=== PATIENT | female | born 1940 | race Two or more races ===

== ENCOUNTER 2021-11-23 09:23 | Inpatient (IN) | payer OTHER, MEDICARE ==
[~2021-11-23] VITALS: Ht 165.1 cm; Wt 59.0 kg
[2021-11-23] MEDS ORDERED: LORazepam 2MG/ML-1ML VIAL IV ONE ×2 (10:00→16:45)
[2021-11-23] MEDS ORDERED: HALOPERIDOL LACTATE 5 MG/ML INJ VIAL IM ONE (10:00)
[2021-11-23] MEDS ORDERED: SODIUM CHLORIDE 0.9% 1,000 ML IV ONE (11:30)
[2021-11-23 12:03] LABS: Basophils # (auto) 0.1 10 ^3/uL (0-0.2); Basophils % (auto) 0.5 % (0.0-2.0); Eosinophils # (auto) 0.1 10 ^3/uL (0-0.8); Eosinophils % (auto) 1.2 % (0.0-7.0); Hematocrit 40.7 % (36.0-46.0); Lymphocytes % (auto) 8.9 % (10.0-50.0); Mean Corpuscular Hemoglobin 29.1 pg (28.0-32.0); Mean Corpuscular Volume 90.7 fL (80.0-100.0); Monocytes # (auto) 1.1 10 ^3/uL (0-1.3); Monocytes % (auto) 9.4 % (0.0-12.0); Nucleated Red Blood Cells % 0.1 %; Red Blood Cells 4.49 10^6/uL (4.0-5.20); Red Cell Distribution Width 13.8 % (11.8-14.3); White Blood Cell 11.3 10^3/uL (4.4-10.8)
[2021-11-23 12:24] LABS: Albumin 3.9 g/dL (3.4-5.0); Calcium 8.5 mg/dL (8.5-10.1); Potassium 3.5 mmol/L (3.5-5.1)
[2021-11-23] MEDS ORDERED: diphenhdrAMINE HCL 50 MG/1 ML VL IV ONE (12:45)
[2021-11-23 12:46] LABS: BUN/Creatinine Ratio 25.5; Bilirubin, Total 0.6 mg/dL (0.2-1.0); Total Protein 7.4 g/dL (6.4-8.2)
[2021-11-23 16:40] LABS: Urine Bacteria FEW /hpf (None Seen); Urine Blood 1+ /uL (Negative); Urine Specific Gravity 1.013 (1.001-1.035); Urine WBC 7 /hpf (0 - 5)
[2021-11-23] MEDS ORDERED: LORazepam 2MG/ML-1ML VIAL ONE (16:43)
[2021-11-23] MEDS ORDERED: HYDROcodone-ACET 5/325MG TAB PO PRN (21:15)
[2021-11-23] MEDS ORDERED: hydrALAZINE HCL 20 MG/ML VL IV PRN (21:15)
[2021-11-23] MEDS ORDERED: LORazepam 2MG/ML-1ML VIAL IV PRN (21:15)
[2021-11-23] MEDS ORDERED: ACETAMINOPHEN 325 MG TAB PO PRN (21:15)
[2021-11-23] MEDS ORDERED: DOCUSATE SOD 100 MG CAP PO PRN (21:15)
[2021-11-23] MEDS ORDERED: POTASSIUM CHL 20 Meq TABLET PO ONE (21:15)
[2021-11-23] MEDS ORDERED: ONDANSETRON HCL 4 MG/2 ML VIAL IV PRN (21:15)
[2021-11-23] MEDS: SODIUM CHLOR 0.9% PF (SALINE LOCK) 10ML VIAL/SYR IV SCH (22:00)
[2021-11-23] MEDS ORDERED: ASCORBIC ACID 500 MG TAB PO SCH (22:00)
[2021-11-24] MEDS ORDERED: MORPHINE SULFATE INJECTION 2 MG/ML SYRG IV PRN (01:00)
[2021-11-24] MEDS ORDERED: NITROGLYCERIN 0.4 MG SL TAB SL PRN (01:00)
[2021-11-24 05:53] LABS: Basophils # (auto) 0 10 ^3/uL (0-0.2); Basophils % (auto) 0.3 % (0.0-2.0); Eosinophils # (auto) 0.1 10 ^3/uL (0-0.8); Eosinophils % (auto) 0.5 % (0.0-7.0); Hemoglobin 14.1 g/dL (12.2-16.2); Lymphocytes # (auto) 0.8 10 ^3/uL (0.4-5.4); Mean Corpuscular Hemoglobin 29.5 pg (28.0-32.0); Mean Corpuscular Hgb Conc. 32.9 g/dL (32.0-36.0); Mean Corpuscular Volume 89.9 fL (80.0-100.0); Monocytes # (auto) 1.1 10 ^3/uL (0-1.3); Monocytes % (auto) 8.9 % (0.0-12.0); Neutrophils # (auto) 10.1 10 ^3/uL (1.6-8.6); Neutrophils % (auto) 83.3 % (37.0-80.0); Nucleated Red Blood Cells % 0.1 %; Red Blood Cells 4.79 10^6/uL (4.0-5.20); Red Cell Distribution Width 13.9 % (11.8-14.3); White Blood Cell 12.1 10^3/uL (4.4-10.8)
[2021-11-24] MEDS: SODIUM CHLOR 0.9% PF (SALINE LOCK) 10ML VIAL/SYR IV SCH (06:07)
[2021-11-24 06:18] LABS: Albumin 3.9 g/dL (3.4-5.0); Calcium 8.8 mg/dL (8.5-10.1); Potassium 3.2 mmol/L (3.5-5.1)
[2021-11-24 06:22] LABS: BUN/Creatinine Ratio 15.2; Bilirubin, Total 1.1 mg/dL (0.2-1.0); Total Protein 7.5 g/dL (6.4-8.2)
[2021-11-24 06:24] VITALS: BP 146/75
[2021-11-24] MEDS ORDERED: ZINC SULFATE 220mg CAP or TAB PO SCH (10:00)
[2021-11-24] MEDS ORDERED: ENOXAPARIN SOD 40 MG/0.4 ML SYRINGE SC SCH (10:00)
[2021-11-24] MEDS ORDERED: FAMOTIDINE (10MG/ML) 2ML VL IV SCH (10:00)
[2021-11-24] MEDS ORDERED: MULTIPLE VITAMIN TAB PO SCH (10:00)
== END 2021-11-24 07:49 | disposition left against medical advice (07) | DRG 555 ==
LOC: ER 09:23 → EDBD 09:23 → OVERFLOW 11-24 00:46
PROVIDERS: ADMIT Nurse Practitioner Family; ATTEND Nurse Practitioner Family
DX: M25.551 Pain in right hip (principal); G93.41 Metabolic encephalopathy; D72.829 Elevated white blood cell count, unspecified; F03.90 Unspecified dementia, unspecified severity, without behavioral disturbance, psychotic disturbance, mood disturbance, and anxiety; I10 Essential (primary) hypertension; Z53.29 Procedure and treatment not carried out because of patient's decision for other reasons; W18.39XA Other fall on same level, initial encounter; Y93.89 Activity, other specified; Y92.89 Other specified places as the place of occurrence of the external cause; Y99.8 Other external cause status; Z20.822 Contact with and (suspected) exposure to COVID-19
CPT/HCPCS: 36415; 70450; 71045; 72192; 80053; 81001; 82140; 84484; 85025; 87426; 96361; 96372; 96374; 96375; 96376; G0378

== ENCOUNTER 2021-12-11 15:10 | Inpatient (IN) | payer OTHER, MEDICARE ==
[~2021-12-11] VITALS: Ht 172.7 cm; Wt 58.2 kg
[2021-12-11] MEDS ORDERED: diphenhdrAMINE HCL 50 MG/1 ML VL ONE (15:38)
[2021-12-11] MEDS ORDERED: diphenhdrAMINE HCL 50 MG/1 ML VL IV ONE (15:45)
[2021-12-11 16:04] LABS: Basophils # (auto) 0.1 10 ^3/uL (0-0.2); Basophils % (auto) 0.6 % (0.0-2.0); Eosinophils # (auto) 0.1 10 ^3/uL (0-0.8); Eosinophils % (auto) 0.7 % (0.0-7.0); Hematocrit 40.4 % (36.0-46.0); Hemoglobin 13.4 g/dL (12.2-16.2); Lymphocytes # (auto) 1.1 10 ^3/uL (0.4-5.4); Lymphocytes % (auto) 10.1 % (10.0-50.0); Mean Corpuscular Hemoglobin 30.2 pg (28.0-32.0); Mean Corpuscular Hgb Conc. 33.3 g/dL (32.0-36.0); Mean Corpuscular Volume 90.6 fL (80.0-100.0); Monocytes # (auto) 1.1 10 ^3/uL (0-1.3); Monocytes % (auto) 10.7 % (0.0-12.0); Neutrophils # (auto) 8.1 10 ^3/uL (1.6-8.6); Neutrophils % (auto) 77.9 % (37.0-80.0); Nucleated Red Blood Cells % 0.1 %; Red Blood Cells 4.46 10^6/uL (4.0-5.20); White Blood Cell 10.4 10^3/uL (4.4-10.8)
[2021-12-11 16:25] LABS: Albumin 3.3 g/dL (3.4-5.0)
[2021-12-11 16:32] LABS: Bilirubin, Total 0.8 mg/dL (0.2-1.0); Total Protein 7.4 g/dL (6.4-8.2)
[2021-12-11] MEDS ORDERED: POTASSIUM EFFERVESENT TAB 25 MEQ PO ONE (16:45)
[2021-12-11 16:52] LABS: INR 1.03 (0.9-1.15)
[2021-12-11] MEDS ORDERED: POTASSIUM CHL 10MEQ/50ML 50 ML IV ONE (17:45)
[2021-12-11] MEDS ORDERED: LORazepam 2MG/ML-1ML VIAL IV ONE (18:51)
[2021-12-11] MEDS ORDERED: LORazepam 2MG/ML-1ML VIAL ONE (18:53)
[2021-12-11] MEDS ORDERED: MORPHINE SULFATE INJECTION 2 MG/ML SYRG IV PRN (21:30)
[2021-12-11] MEDS ORDERED: NITROGLYCERIN 0.4 MG SL TAB SL PRN (21:30)
[2021-12-11] MEDS ORDERED: ENOXAPARIN SOD 80 MG/0.8ML SYRINGE SC ONE (21:30)
[2021-12-11] MEDS ORDERED: ONDANSETRON HCL 4 MG/2 ML VIAL IV PRN (21:30)
[2021-12-11] MEDS ORDERED: ACETAMINOPHEN 325 MG TAB PO PRN (21:30)
[2021-12-11] MEDS ORDERED: ATORVASTATIN 20 MG TAB PO SCH (22:00)
[2021-12-12 00:56] LABS: Urine Bacteria NONE SEEN /hpf (None Seen); Urine Blood Negative /uL (Negative); Urine Mucus FEW (None Seen); Urine Specific Gravity 1.016 (1.001-1.035); Urine WBC 4 /hpf (0 - 5)
[2021-12-12] MEDS: LORazepam 2MG/ML-1ML VIAL IV PRN ×2 (01:09→13:23)
[2021-12-12 08:06] LABS: Basophils # (auto) 0.1 10 ^3/uL (0-0.2); Basophils % (auto) 0.5 % (0.0-2.0); Eosinophils # (auto) 0 10 ^3/uL (0-0.8); Eosinophils % (auto) 0.1 % (0.0-7.0); Hematocrit 38.3 % (36.0-46.0); Hemoglobin 12.7 g/dL (12.2-16.2); Lymphocytes # (auto) 0.8 10 ^3/uL (0.4-5.4); Lymphocytes % (auto) 7.4 % (10.0-50.0); Mean Corpuscular Hemoglobin 29.7 pg (28.0-32.0); Mean Corpuscular Hgb Conc. 33.1 g/dL (32.0-36.0); Mean Corpuscular Volume 89.7 fL (80.0-100.0); Monocytes # (auto) 1.1 10 ^3/uL (0-1.3); Neutrophils # (auto) 9.2 10 ^3/uL (1.6-8.6); Red Blood Cells 4.27 10^6/uL (4.0-5.20); Red Cell Distribution Width 13.8 % (11.8-14.3); White Blood Cell 11.2 10^3/uL (4.4-10.8)
[2021-12-12] MEDS: MORPHINE SULFATE INJECTION 2 MG/ML SYRG IV PRN ×3 (09:51→18:30)
[2021-12-12 09:57] LABS: Potassium 3.3 mmol/L (3.5-5.1)
[2021-12-12] MEDS ORDERED: ASPirin 81 mg TAB PO SCH (10:00)
[2021-12-12] MEDS ORDERED: FUROSEMIDE 20 MG TAB PO SCH (10:00)
[2021-12-12 10:13] LABS: BUN/Creatinine Ratio 35.9
[2021-12-12] MEDS ORDERED: LORA-655 PO (11:32)
[2021-12-12] MEDS ORDERED: CLON0.5T3 PO (11:32)
[2021-12-12] MEDS ORDERED: HYDR-4798 PO (11:32)
[2021-12-12] MEDS ORDERED: SENN1TAB14 PO (11:32)
[2021-12-12] MEDS ORDERED: QUET25TA37 PO (11:32)
[2021-12-12] MEDS ORDERED: ATOR10TA52 PO (11:32)
[2021-12-12] MEDS ORDERED: TEMA30CA PO (11:32)
[2021-12-12] MEDS ORDERED: FUR20T PO (11:32)
[2021-12-12] MEDS ORDERED: POTASSIUM CHL 20 Meq TABLET PO ONE (17:15)
[2021-12-12] MEDS ORDERED: LABETALOL HCL 5 MG/ML ML 20ML VIAL IV ONE (17:15)
[2021-12-12] MEDS: clonazePAM 0.5 MG TAB PO SCH (23:29)
[2021-12-12] MEDS: QUEtiapine FUMARATE 25 MG TAB PO SCH (23:30)
[2021-12-13 11:30] VITALS: BP 143/93
[2021-12-13] MEDS: QUEtiapine FUMARATE 25 MG TAB PO SCH ×2 (13:40→21:34)
[2021-12-13] MEDS: ASPirin 81 mg TAB PO SCH (13:40)
[2021-12-13] MEDS: clonazePAM 0.5 MG TAB PO SCH ×2 (13:40→21:32)
[2021-12-13 21:35] VITALS: BP 132/96
[2021-12-14 05:04] VITALS: BP 118/80
[2021-12-14 09:00] VITALS: BP 138/74
[2021-12-14] MEDS: ASPirin 81 mg TAB PO SCH (09:49)
[2021-12-14] MEDS: clonazePAM 0.5 MG TAB PO SCH ×2 (09:50→22:10)
[2021-12-14] MEDS: QUEtiapine FUMARATE 25 MG TAB PO SCH ×2 (09:51→22:10)
[2021-12-14] MEDS ORDERED: KETOROLAC TROMETH 30 MG/ML 1ML VIAL ONE (10:35)
[2021-12-14] MEDS ORDERED: VANCOMYCIN HCL 1000 MG VL ONE (10:35)
[2021-12-14] MEDS ORDERED: TRANEXAMIC ACID 20 ML ONE (10:37)
[2021-12-14] MEDS ORDERED: BUPIVACAINE W/ EPINEPH 0.25% INJ 50ML MDV ONE (10:47)
[2021-12-14] MEDS ORDERED: EPINEPHrine HCL 1 MG/1 ML AMP ONE (12:06)
[2021-12-14] MEDS ORDERED: ceFAZolin 1GM/50ML 50 ML IV ONE ×2 (12:08→12:09)
[2021-12-14] MEDS ORDERED: BUPIVACAINE 0.5% P/F INJ 10 ML VIAL ONE (12:24)
[2021-12-14] MEDS ORDERED: MORPHINE SULF PF 2 MG/2 ML SYRG ONE ×2 (12:28→13:18)
[2021-12-14] MEDS ORDERED: fentaNYL CITRATE 100 MCG/2 ML VL ONE (12:28)
[2021-12-14] MEDS ORDERED: MIDAZOLAM HCL 2MG/2ML 2ml VIAL (1mg/ml) ONE ×2 (12:28→12:45)
[2021-12-14] MEDS ORDERED: fentaNYL CITRATE 5 ML ONE ×2 (12:45→13:55)
[2021-12-14] MEDS ORDERED: ONDANSETRON HCL 4 MG/2 ML VIAL ONE (13:21)
[2021-12-14] MEDS ORDERED: ONDANSETRON HCL 4 MG/2 ML VIAL IV PRN (14:45)
[2021-12-14] MEDS ORDERED: ePHEDrine SULFATE 50 MG/ML AMP IV PRN (14:45)
[2021-12-14] MEDS ORDERED: MIDAZOLAM HCL 2MG/2ML 2ml VIAL (1mg/ml) IV PRN (14:45)
[2021-12-14] MEDS ORDERED: LABETALOL HCL 5 MG/ML 4ML SYRINGE IV PRN (14:45)
[2021-12-14] MEDS ORDERED: MORPHINE SULFATE 4 MG/ML SYR/VIAL IV PRN (14:45)
[2021-12-14 15:10] VITALS: BP 116/64
[2021-12-14] MEDS: HYDROmorphone HCL 2 MG/ML VL IV PRN ×3 (17:02→18:15)
[2021-12-14] MEDS: LORazepam 2MG/ML-1ML VIAL IV PRN (18:52)
[2021-12-14] MEDS: LACTATED RINGER'S 1,000 ML IV SCH (18:57)
[2021-12-14 22:00] VITALS: BP 126/81
[2021-12-14] MEDS: AMIODARONE HCL 200 MG TAB PO SCH (22:10)
[2021-12-14] MEDS: ceFAZolin 1GM/50ML 50 ML IV SCH (22:10)
[2021-12-14 22:37] LABS: Potassium 4.2 mmol/L (3.5-5.1)
[2021-12-14 22:40] LABS: Magnesium 2.2 mg/dL (1.6-2.6)
[2021-12-15] MEDS: LACTATED RINGER'S 1,000 ML IV SCH (01:00)
[2021-12-15 05:00] VITALS: BP 129/80
[2021-12-15] MEDS: ceFAZolin 1GM/50ML 50 ML IV SCH (06:19)
[2021-12-15] MEDS: MORPHINE SULFATE INJECTION 2 MG/ML SYRG IV PRN (06:33)
[2021-12-15 07:59] LABS: Basophils # (auto) 0 10 ^3/uL (0-0.2); Basophils % (auto) 0.2 % (0.0-2.0); Eosinophils # (auto) 0 10 ^3/uL (0-0.8); Eosinophils % (auto) 0.1 % (0.0-7.0); Hematocrit 36.2 % (36.0-46.0); Hemoglobin 12.3 g/dL (12.2-16.2); Lymphocytes % (auto) 8.3 % (10.0-50.0); Mean Corpuscular Hemoglobin 30.4 pg (28.0-32.0); Mean Corpuscular Hgb Conc. 34.1 g/dL (32.0-36.0); Mean Corpuscular Volume 89.3 fL (80.0-100.0); Monocytes # (auto) 1.1 10 ^3/uL (0-1.3); Monocytes % (auto) 9.5 % (0.0-12.0); Neutrophils # (auto) 9.5 10 ^3/uL (1.6-8.6); Neutrophils % (auto) 81.9 % (37.0-80.0); Red Blood Cells 4.06 10^6/uL (4.0-5.20); Red Cell Distribution Width 13.6 % (11.8-14.3); White Blood Cell 11.5 10^3/uL (4.4-10.8)
[2021-12-15 08:01] LABS: Potassium 4.1 mmol/L (3.5-5.1)
[2021-12-15 08:03] LABS: BUN/Creatinine Ratio 33.3
[2021-12-15 09:00] VITALS: BP 122/73
[2021-12-15] MEDS: ASPirin 81 mg TAB PO SCH (09:44)
[2021-12-15] MEDS: QUEtiapine FUMARATE 25 MG TAB PO SCH ×2 (09:45→22:05)
[2021-12-15] MEDS: ENOXAPARIN SOD 40 MG/0.4 ML SYRINGE SC SCH (09:45)
[2021-12-15] MEDS: AMIODARONE HCL 200 MG TAB PO SCH ×2 (09:45→22:05)
[2021-12-15] MEDS: clonazePAM 0.5 MG TAB PO SCH (09:45)
[2021-12-15 14:00] VITALS: BP 123/76
[2021-12-15] MEDS ORDERED: ERGOCALCIFEROL 50,000 UNIT(1.25MG) CAP PO SCH (14:00)
[2021-12-15] MEDS ORDERED: HALOPERIDOL LACTATE 5 MG/ML INJ VIAL IM ONE (15:15)
[2021-12-15 16:30] VITALS: BP 126/76
[2021-12-15 22:00] VITALS: BP_SYST 128; BP_SYST 138; BP_DIAS 74; BP_DIAS 76
[2021-12-16 02:19] LABS: Basophils # (auto) 0 10 ^3/uL (0-0.2); Basophils % (auto) 0.4 % (0.0-2.0); Eosinophils # (auto) 0 10 ^3/uL (0-0.8); Eosinophils % (auto) 0.2 % (0.0-7.0); Hematocrit 33.5 % (36.0-46.0); Hemoglobin 11.5 g/dL (12.2-16.2); Lymphocytes # (auto) 0.8 10 ^3/uL (0.4-5.4); Mean Corpuscular Hemoglobin 30.6 pg (28.0-32.0); Mean Corpuscular Hgb Conc. 34.2 g/dL (32.0-36.0); Mean Corpuscular Volume 89.3 fL (80.0-100.0); Monocytes % (auto) 10.1 % (0.0-12.0); Neutrophils # (auto) 8.3 10 ^3/uL (1.6-8.6); Neutrophils % (auto) 81.3 % (37.0-80.0); Nucleated Red Blood Cells % 0.1 %; Red Blood Cells 3.75 10^6/uL (4.0-5.20); Red Cell Distribution Width 13.6 % (11.8-14.3); White Blood Cell 10.2 10^3/uL (4.4-10.8)
[2021-12-16 02:22] LABS: Albumin 2.9 g/dL (3.4-5.0); Calcium 8.7 mg/dL (8.5-10.1); Potassium 3.1 mmol/L (3.5-5.1)
[2021-12-16 02:26] LABS: Bilirubin, Total 0.8 mg/dL (0.2-1.0)
[2021-12-16 02:28] LABS: Total Protein 6.3 g/dL (6.4-8.2)
[2021-12-16 05:00] VITALS: BP 146/85
[2021-12-16] MEDS: ceFAZolin 1GM/50ML 50 ML IV SCH ×3 (06:00→21:49)
[2021-12-16] MEDS ORDERED: POTASSIUM CHL 10MEQ/50ML 50 ML IV SCH (06:15)
[2021-12-16] MEDS: POTASSIUM CHL 10MEQ/50ML 50 ML IV SCH ×6 (06:46→13:18)
[2021-12-16] MEDS: HYDROcodone-ACET 5/325MG TAB PO PRN ×2 (08:15→16:57)
[2021-12-16 08:30] VITALS: BP 135/81
[2021-12-16] MEDS: AMIODARONE HCL 200 MG TAB PO SCH ×2 (09:25→21:49)
[2021-12-16] MEDS: QUEtiapine FUMARATE 25 MG TAB PO SCH ×2 (09:25→21:49)
[2021-12-16] MEDS: ASPirin 81 mg TAB PO SCH (09:26)
[2021-12-16] MEDS: ENOXAPARIN SOD 40 MG/0.4 ML SYRINGE SC SCH (09:26)
[2021-12-16 12:30] VITALS: BP 112/61
[2021-12-16] MEDS: Ensure HIGH Protein Chocolate 8oz Bottle PO SCH ×2 (13:18→17:25)
[2021-12-16 22:00] VITALS: BP 136/87
[2021-12-17 05:00] VITALS: BP 116/73
[2021-12-17] MEDS: ceFAZolin 1GM/50ML 50 ML IV SCH ×2 (06:19→13:05)
[2021-12-17 09:00] VITALS: BP 105/69
[2021-12-17] MEDS: AMIODARONE HCL 200 MG TAB PO SCH (09:03)
[2021-12-17] MEDS: QUEtiapine FUMARATE 25 MG TAB PO SCH (09:03)
[2021-12-17] MEDS: HYDROcodone-ACET 5/325MG TAB PO PRN (09:04)
[2021-12-17] MEDS: ENOXAPARIN SOD 40 MG/0.4 ML SYRINGE SC SCH (09:04)
[2021-12-17] MEDS: ASPirin 81 mg TAB PO SCH (09:05)
[2021-12-17] MEDS: Ensure HIGH Protein Chocolate 8oz Bottle PO SCH ×2 (09:05→11:50)
[2021-12-17] MEDS ORDERED: MULTIPLE VITAMINS W/ MINERALS TAB PO SCH (10:00)
[2021-12-17 11:24] VITALS: BP 105/69
[2021-12-17 13:00] VITALS: BP 111/67
== END 2021-12-17 15:00 | disposition hospice, home (50) | DRG 521 ==
LOC: ER 15:10 → EDBD 15:10 → TELE 21:16 → TELE-CENTR 12-13 11:00 → CENTRAL 12-16 13:41
PROVIDERS: ADMIT Nurse Practitioner; ATTEND Internal Medicine
PROC: 0SRR039 Replacement of Right Hip Joint, Femoral Surface with Ceramic Synthetic Substitute, Cemented, Open Approach (ICD-10-PCS; principal; 2021-12-14 12:34)
DX: M80.051A Age-related osteoporosis with current pathological fracture, right femur, initial encounter for fracture (principal); E43 Unspecified severe protein-calorie malnutrition; I21.A1 Myocardial infarction type 2; F03.90 Unspecified dementia, unspecified severity, without behavioral disturbance, psychotic disturbance, mood disturbance, and anxiety; E87.6 Hypokalemia; Z51.5 Encounter for palliative care; I10 Essential (primary) hypertension; E78.5 Hyperlipidemia, unspecified; M85.80 Other specified disorders of bone density and structure, unspecified site; I25.10 Atherosclerotic heart disease of native coronary artery without angina pectoris; I48.91 Unspecified atrial fibrillation; Z66 Do not resuscitate; W18.39XA Other fall on same level, initial encounter; Y93.89 Activity, other specified; Y92.89 Other specified places as the place of occurrence of the external cause; Y99.8 Other external cause status; Z20.822 Contact with and (suspected) exposure to COVID-19
CPT/HCPCS: 36415; 36600; 71045; 72170; 72192; 73502; 80048; 80053; 81001; 82805; 83735; 84132; 84484; 85025; 85610; 85730; 87040; 87070; 87205; 87426; 93005; 93306; 94002; 96361; 96374; 96375; 97163; 97530; G0378; J0171; J0690; J1885; J2250; J2405; J3490